=== PATIENT | male | born 1950 | race Caucasian/White ===

== ENCOUNTER 2023-12-24 15:03 | Outpatient (CLI) | payer MEDICARE, OTHER | END 2023-12-24 15:04 | disposition home or self-care (01) | LOC: CSHRAD 15:03 | PROVIDERS: ATTEND Family Medicine Sports Medicine | DX: M54.50 Low back pain, unspecified (principal); M47.816 Spondylosis without myelopathy or radiculopathy, lumbar region | CPT/HCPCS: 72110 ==

== ENCOUNTER 2024-09-20 13:28 | Outpatient (CLI) | payer MEDICARE, OTHER ==
[~2024-09-20 13:28] MED LIST: Iopamidol 370 76% 100 ML VIAL ONE
== END 2024-09-20 13:29 | disposition home or self-care (01) ==
LOC: CSHCT 13:28
PROVIDERS: ATTEND Family Medicine Sports Medicine
DX: N40.1 Benign prostatic hyperplasia with lower urinary tract symptoms (principal); N13.8 Other obstructive and reflux uropathy; C79.51 Secondary malignant neoplasm of bone; N28.1 Cyst of kidney, acquired; K57.30 Diverticulosis of large intestine without perforation or abscess without bleeding
CPT/HCPCS: 74177